=== PATIENT | male | born 1960 | race Two or more races ===

== ENCOUNTER 2017-02-11 10:23 | Emergency (ER) | payer OTHER ==
[~2017-02-11 10:23] MED LIST: LOSARTAN-HCTZ1 EAC4 PO; NORCO 5-325 TA1 EACH PO; POTASSIUM CHLO10 ME1 PO; VITAMIN C500 M3 PO
[2017-02-11] MEDS ORDERED: NORCO 5-325 TA1 EACH PO (12:33)
[2017-02-11] MEDS ORDERED: PREDNISONE20 M1 PO (12:33)
== END 2017-02-11 13:35 ==
LOC: EDMED 10:23
DX: M54.41 Lumbago with sciatica, right side (principal); I10 Essential (primary) hypertension; Z79.899 Other long term (current) drug therapy; V49.40XA Driver injured in collision with unspecified motor vehicles in traffic accident, initial encounter; Y92.410 Unspecified street and highway as the place of occurrence of the external cause
CPT/HCPCS: J1885